=== PATIENT | male | born 1985 | race Caucasian/White ===

== ENCOUNTER 2021-07-06 11:27 | Emergency (ER) | payer BC ==
[~2021-07-06] VITALS: Ht 172.7 cm; Wt 99.8 kg
[2021-07-06] MEDS ORDERED: HYDR-4209 PO (12:34)
--- NOTE | 2021-07-06 12:47 | NUR ---
PT WAS EVALUATED BY DR LEA. PT WAS D/C'd TO HOME D/C INSTRUCTIONS GIVEN TO THE PT BY DR LEA.
[2021-07-06 12:48] VITALS: BP 136/75
== END 2021-07-06 12:49 | disposition home or self-care (01) ==
LOC: ER 11:35
DX: G56.03 Carpal tunnel syndrome, bilateral upper limbs (principal)
CPT/HCPCS: A4663

== ENCOUNTER 2022-03-24 15:39 | Emergency (ER) | payer BC ==
[~2022-03-24] VITALS: Ht 177.8 cm; Wt 93.0 kg
[~2022-03-24 15:39] MED LIST: HYDR-4209 PO
[2022-03-24] MEDS ORDERED: OXYC-128 PO (19:06)
--- NOTE | 2022-03-24 19:15 | NUR ---
Patient discharged to home in stable condition. Written and verbal after care instructions given. Patient verbalizes understanding of instructions. Stressed follow up or return to ER for worsening s/s. Patient is a/ox4, NAD noted. patient is able to walk with steady gait
[2022-03-24 19:26] VITALS: BP 125/78
== END 2022-03-24 19:15 | disposition home or self-care (01) ==
LOC: ER 15:44
DX: S39.012A Strain of muscle, fascia and tendon of lower back, initial encounter (principal); X50.1XXA Overexertion from prolonged static or awkward postures, initial encounter; Y92.89 Other specified places as the place of occurrence of the external cause
CPT/HCPCS: A4663

== ENCOUNTER 2022-04-08 06:33 | Emergency (ER) | payer BC ==
[~2022-04-08] VITALS: Ht 177.8 cm; Wt 97.5 kg
[~2022-04-08 06:33] MED LIST changes: +OXYC-128 PO
--- NOTE | 2022-04-08 06:55 | NUR ---
DR Mo at bedside MSE in progress
--- NOTE | 2022-04-08 07:10 | NUR ---
ALLIAR to Viviane LOJA
[2022-04-08] MEDS ORDERED: KETOROLAC TROMETHAMINE 15 MG INJ ONE (07:30)
[2022-04-08] MEDS ORDERED: KETOROLAC TROMETHAMINE 15 MG INJ IM ONE (07:30)
[2022-04-08] MEDS ORDERED: DIAZEPAM 10 MG/2 ML DISP.SYRIN IM ONE (07:30)
[2022-04-08] MEDS ORDERED: DIAZEPAM 10 MG/2 ML DISP.SYRIN ONE (07:30)
[2022-04-08] MEDS ORDERED: METH4TAB3 PO (07:31)
[2022-04-08] MEDS ORDERED: IBUP-1955 PO (07:31)
[2022-04-08] MEDS ORDERED: CYCL5TAB PO (07:31)
--- NOTE | 2022-04-08 07:47 | NUR ---
called central supply for ABD binder- spoke to Esequiel who states he will search for large abdominal binder and send to ER for patient maday.
--- NOTE | 2022-04-08 08:07 | NUR ---
patient pain reassessed, pt reports less pain 4/10. Patient discharged to home in stable condition. Written and verbal after care instructions given. Patient verbalizes understanding of instructions. Stressed follow up or return to ER for worsening s/s.
--- NOTE | 2022-04-08 08:10 | NUR ---
patient discharged, to drive patient home. abd binder handed to patient with verbal instructions for use.
== END 2022-04-08 08:11 | disposition home or self-care (01) ==
LOC: ER 06:39
DX: S39.012S Strain of muscle, fascia and tendon of lower back, sequela (principal); X50.0XXS Overexertion from strenuous movement or load, sequela; M62.830 Muscle spasm of back
CPT/HCPCS: 99284; 96372 ×2; J1885; A4663; J3360

== ENCOUNTER 2022-05-01 14:52 | Emergency (ER) | payer BC ==
[~2022-05-01] VITALS: Ht 177.8 cm; Wt 97.5 kg
[~2022-05-01 14:52] MED LIST changes: +CYCL5TAB PO; +IBUP-1955 PO; +METH4TAB3 PO
[2022-05-01] MEDS ORDERED: ESZO3TAB27 PO (15:39)
--- NOTE | 2022-05-01 15:58 | NUR ---
Patient discharged to home in stable condition. Written and verbal after care instructions given. Patient verbalizes understanding of instructions. Stressed follow up or return to ER for worsening s/s.
[2022-05-01 15:59] VITALS: BP 130/89
== END 2022-05-01 15:59 | disposition home or self-care (01) ==
LOC: ER 14:52
DX: Z09 Encounter for follow-up examination after completed treatment for conditions other than malignant neoplasm (principal); M54.9 Dorsalgia, unspecified; G47.00 Insomnia, unspecified
CPT/HCPCS: A4663